=== PATIENT | female | born 1985 | race Caucasian/White ===

== ENCOUNTER 2017-10-27 11:46 | Emergency (ER) | payer OTHER ==
[~2017-10-27] VITALS: Ht 180.3 cm; Wt 104.3 kg
[~2017-10-27 11:46] MED LIST: ALBU90OI INH; BCP; BENTYL10 MG PO; CEPH500 PO; CIPR500 PO; CRUTCH3 USE; CYCL10 PO; Cefdinir300 MG PO; Cleocin HCl300 MG PO; HYDACE5 PO; IBUP600 PO; IBUP800 PO; LOPE2C PO; MEDR150I IM; Macrobid 100 M100 MG PO; Milk Of Ma400 MG/5 M PO; NAPR500; NAPR500 PO; OMEP10ER PO; OMEP40CA12 PO; OMEPRAZOLE MAGN20 MG PO; OXYACE5T PO; PHENA100 PO; PROM25 PO; Percocet 5-3251 EACH PO; RANI150 PO; RXCYCL10 PO; RXHYDACE PO; SUCR1 PO; SULTRIDS PO; TRAM50 PO; Verotin-Gr Cap1 EACH PO; Zantac150 MG PO; Zofran4 MG PO
[2017-10-27] MEDS ORDERED: BENZ100A PO (12:31)
[2017-10-27] MEDS ORDERED: OXYM.05NI (12:31)
[2017-10-27] MEDS ORDERED: PSEU120ER PO (12:31)
== END 2017-10-27 12:50 | disposition home or self-care (01) ==
LOC: ER 11:46
DX: J06.9 Acute upper respiratory infection, unspecified (principal); F17.200 Nicotine dependence, unspecified, uncomplicated; Z88.0 Allergy status to penicillin; Z79.899 Other long term (current) drug therapy
CPT/HCPCS: 81000; 81025; 99282

== ENCOUNTER 2019-03-04 08:26 | Day surgery (SDC) | payer OTHER ==
[~2019-03-04 08:26] MED LIST changes: +BENZ100A PO; +OXYM.05NI; +PSEU120ER PO; +Roxicodone5 MG PO
== END 2019-03-04 22:42 | disposition home or self-care (01) ==
LOC: MOI RAD 08:26 → MOI MRI 10:00 → MOI RAD 22:42
DX: S43.431A Superior glenoid labrum lesion of right shoulder, initial encounter (principal); K21.9 Gastro-esophageal reflux disease without esophagitis; F17.210 Nicotine dependence, cigarettes, uncomplicated; X58.XXXA Exposure to other specified factors, initial encounter; Z88.0 Allergy status to penicillin; Z79.899 Other long term (current) drug therapy
CPT/HCPCS: 20610; 73222; 77002; A9577; Q9967

== ENCOUNTER 2022-07-21 20:58 | Emergency (ER) | payer OTHER ==
[~2022-07-21] VITALS: Ht 180.3 cm; Wt 124.7 kg
[2022-07-22] MEDS ORDERED: ACET500 PO (01:22)
[2022-07-22] MEDS ORDERED: IBUP400 PO (01:22)
[2022-07-22] MEDS ORDERED: OXYC5 PO (01:22)
== END 2022-07-22 01:44 | disposition home or self-care (01) ==
LOC: ER 20:58
DX: S82.851A Displaced trimalleolar fracture of right lower leg, initial encounter for closed fracture (principal); X50.1XXA Overexertion from prolonged static or awkward postures, initial encounter; F10.129 Alcohol abuse with intoxication, unspecified; F17.210 Nicotine dependence, cigarettes, uncomplicated; Z88.0 Allergy status to penicillin; Z88.8 Allergy status to other drugs, medicaments and biological substances
CPT/HCPCS: 27818; 36415; 73600; 73610; 96374-59; 96375-59; 96376-59; 99283-25; J1885; J3010

== ENCOUNTER 2022-07-31 13:24 | Day surgery (SDC) | payer OTHER ==
[~2022-07-31] VITALS: Ht 180.3 cm; Wt 114.7 kg
[~2022-07-31 13:24] MED LIST changes: +ACET500 PO; +IBUP400 PO; +OXYC5 PO
[2022-07-31] MEDS ORDERED: HYDCHL25 PO (14:07)
[2022-07-31] MEDS ORDERED: Prinivil10 MG PO (14:07)
[2022-07-31] MEDS ORDERED: MEDROXYPRO150 MG/29 IM (14:08)
--- NOTE | 2022-07-31 15:13 | NUR ---
07/31/22 1513 Shannon Loza 1505: REPORT GIVEN TO SANDRA SELLERS. COMMUNICATED NEED TO CONFIRM CEFAZOLIN AND THAT BICITRA STILL NEEDS TO BE GIVEN.
--- NOTE | 2022-07-31 16:01 | NUR ---
07/31/22 1601 Bertram Giron ROPIVACAINE 0.5% 30 MLS MIXED & VERIFIED W/ EPI 0.15 ML (1MG/ML) TO MAKE ROPIVACAINE 0.5% 1:200,000 FOR INJECTED AT OPSITE BY DR MCKINNON. ALL 30 MLS INJECTED FOR PAIN CONTROL & HOMEOSTASIS.
== END 2022-07-31 18:01 | disposition home or self-care (01) ==
LOC: ORSCSDS 13:24
PROVIDERS: Podiatrist Foot & Ankle Surgery
PROC: 0QSJ04Z Reposition Right Fibula with Internal Fixation Device, Open Approach (ICD-10-PCS; principal; 2022-07-31 14:45)
DX: S82.851A Displaced trimalleolar fracture of right lower leg, initial encounter for closed fracture (principal); S93.492A Sprain of other ligament of left ankle, initial encounter; I10 Essential (primary) hypertension; E66.9 Obesity, unspecified; Z68.35 Body mass index [BMI] 35.0-35.9, adult
CPT/HCPCS: 84703; A9270; C1713; C1776; J0171; J0690; J1100; J1885; J2270; J2405; J2704; J2765; J2795; J3010; J7120

== ENCOUNTER → 2023-12-25 | Outpatient (CLI) | payer OTHER ==
[~2023-12-25] MED LIST changes: +HYDCHL25 PO; +MEDROXYPRO150 MG/29 IM; +Prinivil10 MG PO
[2023-12-25 10:43] LABS: BASOPHILS ABSOLUTE AUTO 0.05 K/mm3 (0.00-0.23); BASOPHILS PERCENT AUTO 1 % (0-2); EOSINOPHILS ABSOLUTE AUTO 0.22 K/mm3 (0.00-0.68); EOSINOPHILS PERCENT AUTO 2 % (0-6); Hematocrit 42.5 % (33.0-51.0); Hemoglobin 14.6 g/dL (11.5-16.0); IMMATURE GRAN ABSOLUTE AUTO 0.03 K/mm3 (0.00-0.10); IMMATURE GRAN PERCENT AUTO 0 % (0-1); LYMPHOCYTES ABSOLUTE AUTO 3.95 K/mm3 (0.84-5.20); LYMPHOCYTES PERCENT AUTO 38 % (21-46); MONOCYTES ABSOLUTE AUTO 0.53 K/mm3 (0.16-1.47); MONOCYTES PERCENT AUTO 5 % (4-13); Mean Corpuscular HGB 33.5 pg (26.0-34.0); Mean Corpuscular HGB Conc 34.4 g/dL (31.5-36.5); Mean Corpuscular Volume 98 fL (80-100); Mean Platelet Volume 9.8 fL (9.1-12.4); NEUTROPHILS ABSOLUTE AUTO 5.64 K/mm3 (1.96-9.15); NEUTROPHILS PERCENT AUTO 54 % (41-73); Platelet Count 319 K/mm3 (150-400); RDW Coefficient Variation 13.4 % (11.7-14.2); RDW Standard Deviation 48.2 fL (35.1-46.3); Red Blood Cell Count 4.36 M/mm3 (3.80-5.20); White Blood Cell Count 10.42 K/mm3 (4.00-11.30)
== END ==
LOC: LAB 10:39 → LAB SHORT 10:39
PROVIDERS: Physician Assistant
DX: R23.3 Spontaneous ecchymoses (principal); R82.81 Pyuria
CPT/HCPCS: 85025; 87077; 87086; 87186

== ENCOUNTER 2024-03-28 07:36 | Emergency (ER) | payer OTHER ==
[~2024-03-28] VITALS: Ht 180.3 cm; Wt 95.2 kg
[2024-03-28 08:32] LABS: BASOPHILS ABSOLUTE AUTO 0.09 K/mm3 (0.00-0.23); BASOPHILS PERCENT AUTO 1 % (0-2); EOSINOPHILS PERCENT AUTO 1 % (0-6); Hematocrit 43.7 % (33.0-51.0); Hemoglobin 14.2 g/dL (11.5-16.0); IMMATURE GRAN PERCENT AUTO 2 % (0-1); LYMPHOCYTES ABSOLUTE AUTO 3.64 K/mm3 (0.84-5.20); LYMPHOCYTES PERCENT AUTO 21 % (21-46); MONOCYTES ABSOLUTE AUTO 0.96 K/mm3 (0.16-1.47); MONOCYTES PERCENT AUTO 5 % (4-13); Mean Corpuscular HGB 32.6 pg (26.0-34.0); Mean Corpuscular HGB Conc 32.5 g/dL (31.5-36.5); Mean Corpuscular Volume 100 fL (80-100); Mean Platelet Volume 9.4 fL (9.1-12.4); NEUTROPHILS ABSOLUTE AUTO 12.68 K/mm3 (1.96-9.15); NEUTROPHILS PERCENT AUTO 71 % (41-73); Platelet Count 244 K/mm3 (150-400); RDW Coefficient Variation 13.2 % (11.7-14.2); RDW Standard Deviation 49.1 fL (35.1-46.3); Red Blood Cell Count 4.36 M/mm3 (3.80-5.20); White Blood Cell Count 17.77 K/mm3 (4.00-11.30)
[2024-03-28 08:57] LABS: Albumin, Blood 3.4 g/dL (3.4-5.0); Albumin/Globulin Ratio 0.8 (0.8-1.8); Bilirubin, Total 0.2 mg/dL (0.1-1.0); Bun/Creatinine Ratio 27.3 (12.0-20.0); Calcium, Blood 8.8 mg/dL (8.5-10.1); Creatinine, Blood 0.55 mg/dL (0.40-1.00); Globulin, Blood 4.2 g/dL (2.2-4.0); Potassium, Blood 3.8 mmol/L (3.5-5.5); Total Protein, Blood 7.6 g/dL (6.4-8.2)
[2024-03-28] MEDS ORDERED: Ketorolac Tromethamine 15mg Vial IV ONE (11:25)
[2024-03-28] MEDS ORDERED: Robaxin750 MG PO (13:34)
[2024-03-28 17:21] VITALS: BP 122/89
== END 2024-03-28 17:26 | disposition home or self-care (01) ==
LOC: ER 07:36
PROVIDERS: Emergency Medicine
DX: S30.1XXA Contusion of abdominal wall, initial encounter (principal); S80.01XA Contusion of right knee, initial encounter; S40.012A Contusion of left shoulder, initial encounter; F17.210 Nicotine dependence, cigarettes, uncomplicated; V89.2XXA Person injured in unspecified motor-vehicle accident, traffic, initial encounter; Z88.0 Allergy status to penicillin
CPT/HCPCS: 70450; 71260; 72125; 73110; 73562-RT; 73630; 74177; 80053; 80320; 85025; 93005; 93010; 96374; 99285-25; J1885; Q9967

== ENCOUNTER 2024-03-28 18:27 | Emergency (ER) | payer OTHER ==
[~2024-03-28] VITALS: Ht 180.3 cm; Wt 95.2 kg
[~2024-03-28 18:27] MED LIST changes: +Robaxin750 MG PO
[2024-03-28 19:01] VITALS: BP 101/71
== END 2024-03-28 22:20 | disposition home or self-care (01) ==
LOC: ER 18:27
DX: S20.312A Abrasion of left front wall of thorax, initial encounter (principal); F43.0 Acute stress reaction; K21.9 Gastro-esophageal reflux disease without esophagitis; F17.210 Nicotine dependence, cigarettes, uncomplicated; V89.2XXA Person injured in unspecified motor-vehicle accident, traffic, initial encounter; Z79.899 Other long term (current) drug therapy; Z88.0 Allergy status to penicillin
CPT/HCPCS: 99282

== ENCOUNTER 2024-04-15 14:25 | Emergency (ER) | payer OTHER ==
[~2024-04-15] VITALS: Ht 180.3 cm; Wt 95.2 kg
[2024-04-15 14:31] VITALS: BP 121/85
== END 2024-04-15 18:46 | disposition home or self-care (01) ==
LOC: ER 14:25
DX: G44.309 Post-traumatic headache, unspecified, not intractable (principal); F07.81 Postconcussional syndrome; F17.210 Nicotine dependence, cigarettes, uncomplicated; K21.9 Gastro-esophageal reflux disease without esophagitis; Z79.899 Other long term (current) drug therapy; Z88.0 Allergy status to penicillin
CPT/HCPCS: 73070; 99284-25

== ENCOUNTER 2024-07-21 16:05 | Emergency (ER) | payer OTHER ==
[~2024-07-21] VITALS: Ht 180.3 cm; Wt 63.5 kg
[2024-07-21 16:33] VITALS: BP 134/85
[2024-07-21] MEDS ORDERED: Mupirocin22 GM TOP (17:29)
== END 2024-07-21 17:31 | disposition home or self-care (01) ==
LOC: ER 16:05
DX: L03.012 Cellulitis of left finger (principal); K21.9 Gastro-esophageal reflux disease without esophagitis; F17.210 Nicotine dependence, cigarettes, uncomplicated; Z79.899 Other long term (current) drug therapy; Z88.0 Allergy status to penicillin
CPT/HCPCS: 26010; 99283-25

== ENCOUNTER 2024-07-23 09:14 | Emergency (ER) | payer OTHER ==
[~2024-07-23] VITALS: Ht 182.9 cm; Wt 81.7 kg
[~2024-07-23 09:14] MED LIST changes: +Mupirocin22 GM TOP
[2024-07-23] MEDS ORDERED: CEPH500 PO (10:13)
[2024-07-23 10:20] VITALS: BP 135/81
== END 2024-07-23 10:25 | disposition home or self-care (01) ==
LOC: ER 09:14
DX: L03.012 Cellulitis of left finger (principal); K21.9 Gastro-esophageal reflux disease without esophagitis; F17.210 Nicotine dependence, cigarettes, uncomplicated; Z79.899 Other long term (current) drug therapy; Z88.0 Allergy status to penicillin
CPT/HCPCS: 10060; 99283-25

== ENCOUNTER 2025-01-29 18:44 | Emergency (ER) | payer OTHER ==
[~2025-01-29] VITALS: Ht 177.8 cm; Wt 99.3 kg
[2025-01-29] MEDS ORDERED: HYDROcodone 5-APAP 325 TAB PO ONE (22:20)
[2025-01-29] MEDS ORDERED: Ketorolac Tromethamine 15mg Vial IV ONE (23:55)
[2025-01-30 00:19] VITALS: BP 122/82
== END 2025-01-30 00:10 | disposition home or self-care (01) ==
LOC: ER 18:44
DX: S60.212A Contusion of left wrist, initial encounter (principal); S50.12XA Contusion of left forearm, initial encounter; S80.02XA Contusion of left knee, initial encounter; S70.02XA Contusion of left hip, initial encounter; S20.219A Contusion of unspecified front wall of thorax, initial encounter; V00.131A Fall from skateboard, initial encounter; Y93.51 Activity, roller skating (inline) and skateboarding
CPT/HCPCS: 71046; 73090; 73110; 73502; 73562-LT; 84703; 96374; 99284-25; A9270; J1885

== ENCOUNTER → 2025-04-06 | Outpatient (CLI) | payer OTHER | END | disposition home or self-care (01) | LOC: LAB 15:45 → LAB SHORT 15:45 | DX: N39.0 Urinary tract infection, site not specified (principal) | CPT/HCPCS: 87077; 87086; 87186 ==